=== PATIENT | male | born 1990 | race Two or more races ===

== ENCOUNTER 2023-08-23 19:58 | Emergency (ER) | payer SELFPAY ==
[~2023-08-23] VITALS: Ht 185.4 cm; Wt 100.0 kg
[2023-08-23 20:09] VITALS: BP 160/88; PULSE 120; RESP 20; O2SAT 98
== END 2023-08-23 20:18 | disposition left against medical advice (07) ==
LOC: EDBD 19:58 → ER 19:58
DX: T50.7X1A Poisoning by analeptics and opioid receptor antagonists, accidental (unintentional), initial encounter (principal); Y92.89 Other specified places as the place of occurrence of the external cause